=== PATIENT | female | born 1965 | race Caucasian/White ===

== ENCOUNTER 2022-09-14 19:48 | Emergency (ER) | payer SELFPAY ==
[~2022-09-14] VITALS: Ht 157.5 cm; Wt 181.9 kg
[~2022-09-14 19:48] MED LIST: BENA20TA PO
[2022-09-14 19:52] VITALS: BP 210/102
--- NOTE | 2022-09-14 20:00 | NUR ---
pt to bed 7 ambulatory
[2022-09-14] MEDS ORDERED: NACL 0.9% 1,000 ML IV ONE (20:15)
[2022-09-14] MEDS ORDERED: fentaNYL citrate 0.05 MG/ML VIAL IVP ONE (20:15)
[2022-09-14] MEDS ORDERED: ONDANSETRON 4 MG/2 ML VIAL IVP ONE (20:15)
--- NOTE | 2022-09-14 20:15 | NUR ---
lab by bedside
--- NOTE | 2022-09-14 20:15 | NUR ---
c/o vaginal bleeding x 2 weeks, per pt 04/25 pain. pmhx: HTN and anemia, allergy to morphine.
[2022-09-14 20:29] LABS: BASOPHILS % (AUTO) 0.5 % (0.0-2.0); EOSINOPHILS % (AUTO) 0.6 % (0.0-4.0); HEMATOCRIT 31.8 % (36-48); HEMOGLOBIN 9.3 g/dL (12.0-16.0); LYMPHOCYTES # (AUTO) 1.3 K/uL (2.5-16.5); LYMPHOCYTES % (AUTO) 18.4 % (20.5-51.1); MEAN CORPUSCULAR HEMOGLOBIN 20 pg (27-31); MEAN CORPUSCULAR HGB CONC 29 g/dL (33-37); MEAN CORPUSCULAR VOLUME 68.5 fL (80-94); MONOCYTES # (AUTO) 0.5 K/uL (0.8-1.0); NEUTROPHILS % (AUTO) 73.5 % (42.2-75.2); PLATELET COUNT (AUTO) 343 K/uL (140-450); RED BLOOD CELL COUNT(AUTO) 4.65 MIL/uL (4.20-5.40); RED CELL DISTRIBUTION WIDTH 20.6 % (11.6-13.7); WHITE BLOOD COUNT (AUTO) 6.8 K/uL (4.8-10.8)
--- NOTE | 2022-09-14 20:33 | NUR ---
us at bedside.
[2022-09-14 20:44] LABS: ALBUMIN 3.5 g/dL (3.4-5.0); ANION GAP 8.3 (8-16); CARBON DIOXIDE 32.2 mmol/L (21-32); CREATININE 0.6 mg/dL (0.6-1.3); POTASSIUM 3.5 mmol/L (3.5-5.1); TOTAL BILIRUBIN 0.5 mg/dL (0.0-1.0)
--- NOTE | 2022-09-14 21:05 | NUR ---
Pt assisted to restroom. Pt noted with moderate amount of vaginal bleeding on pad.
--- NOTE | 2022-09-14 21:10 | NUR ---
urine collected sent to lab
--- NOTE | 2022-09-14 21:24 | NUR ---
oil processing technician by bedside at this time, per oil processing technician, pt weight and circumference exceeds limit for CT. ER Dr. Velásquez made aware.
[2022-09-14 21:25] LABS: BILIRUBIN,URINE NEGATIVE (NEGATIVE); BLOOD, URINE 3+ (NEGATIVE); LEUKOCYTE ESTERASE ,URINE NEGATIVE (NEGATIVE); NITRITE, URINE POSITIVE (NEGATIVE); UGLUCOSE NEGATIVE (NEGATIVE)
[2022-09-14 21:27] LABS: APPEARANCE,URINE SLIGHTLY CLOUDY (CLEAR); COLOR,URINE ORANGE (YELLOW)
--- NOTE | 2022-09-14 21:36 | NUR ---
ER Dr. Mercado by bedside
[2022-09-14] MEDS ORDERED: ACET-10509 PO (21:43)
[2022-09-14] MEDS ORDERED: ACET-8905 PO (21:43)
[2022-09-14] MEDS ORDERED: ONDA-188 PO (21:43)
[2022-09-14] MEDS ORDERED: [UNRECOGNIZED DRUG - CODE] PO (21:43)
[2022-09-14 21:44] LABS: RBC,URINE 20-50 /HPF (0-5); WBC,URINE 0-5 /HPF (0-5)
[2022-09-14 22:00] VITALS: BP 151/74
--- NOTE | 2022-09-14 22:01 | NUR ---
Patient discharged with v/s stable. Written and verbal after care instructions given and explained. New Rx for tylenol, norco, loestrin, and zofran. Patient verbalized understanding. Ambulatory with steady gait. All questions addressed prior to discharge. Advised to follow up with PMD.
== END 2022-09-14 22:00 | disposition home or self-care (01) ==
LOC: MED 19:48
DX: N93.8 Other specified abnormal uterine and vaginal bleeding (principal); N94.6 Dysmenorrhea, unspecified; I10 Essential (primary) hypertension; Z86.2 Personal history of diseases of the blood and blood-forming organs and certain disorders involving the immune mechanism; Z79.899 Other long term (current) drug therapy; Z79.891 Long term (current) use of opiate analgesic; Z88.5 Allergy status to narcotic agent
CPT/HCPCS: 36415; 76856; 80053; 81001; 81025; 85025; 86886; 86900; 86901; 93976; 96361; 96374; 96375; 99285; J2405; J3010; J7030; Q0092; 99284